=== PATIENT | male | born 2000 ===

== ENCOUNTER 2022-10-26 03:05 | Emergency (ER) | payer OTHER ==
[~2022-10-26] VITALS: Ht 188 cm; Wt 74.8 kg
[~2022-10-26 03:05] MED LIST: ACET325UDC; AMOX50SU PO; ERYT.5TO OU; IBUP100S; PERM5TC TOP; PRED20 PO; RXERYTOPTH OP; Zofran Odt4 MG SL
[2022-10-26 03:20] VITALS: BP 124/66
[2022-10-26] MEDS ORDERED: HYDR1TAB94 PO (03:40)
[2022-10-26] MEDS ORDERED: ERYT.5TO BOTHEYES (03:40)
== END 2022-10-26 03:29 | disposition home or self-care (01) ==
LOC: ER 03:05
DX: H16.133 Photokeratitis, bilateral (principal)
CPT/HCPCS: 99282; A9270

== ENCOUNTER 2024-06-03 13:35 | Emergency (ER) | payer OTHER ==
[~2024-06-03] VITALS: Ht 185.4 cm; Wt 70.3 kg
[~2024-06-03 13:35] MED LIST changes: +ERYT.5TO BOTHEYES; +HYDR1TAB94 PO
[2024-06-03 13:50] VITALS: BP 152/92
[2024-06-03] MEDS ORDERED: AMOCLA875 PO (15:11)
== END 2024-06-03 15:25 | disposition home or self-care (01) ==
LOC: ER 13:35
DX: S61.012A Laceration without foreign body of left thumb without damage to nail, initial encounter (principal); Z79.2 Long term (current) use of antibiotics; Z79.899 Other long term (current) drug therapy; W25.XXXA Contact with sharp glass, initial encounter
CPT/HCPCS: 12002; 73130; 99283-25

== ENCOUNTER 2024-06-05 15:20 | Emergency (ER) | payer OTHER ==
[~2024-06-05] VITALS: Ht 185.4 cm; Wt 72.6 kg
[~2024-06-05 15:20] MED LIST changes: +AMOCLA875 PO
[2024-06-05 15:31] VITALS: BP 125/70
== END 2024-06-05 17:27 | disposition home or self-care (01) ==
LOC: ER 15:20
DX: S53.402A Unspecified sprain of left elbow, initial encounter (principal); S83.92XA Sprain of unspecified site of left knee, initial encounter; X50.1XXA Overexertion from prolonged static or awkward postures, initial encounter
CPT/HCPCS: 73080; 73562-LT; 99283-25